=== PATIENT | male | born 1975 | race Caucasian/White ===

== ENCOUNTER 2023-11-21 21:04 | Emergency (ER) | payer SELFPAY ==
[~2023-11-21] VITALS: Ht 172.7 cm; Wt 77.0 kg
[2023-11-21 21:06] VITALS: O2SAT 99
[2023-11-21] MEDS: SODIUM CHLORIDE 0.9% 1,000 ML IV ONE (21:15)
[2023-11-21 22:53] LABS: BASOPHILS % 0.7 % (0.0-2.0); HEMATOCRIT. 45.6 % (42.0-52.0); HEMOGLOBIN. 15.1 g/dL (14.0-18.0); LYMPHOCYTES % 34.1 % (20.0-50.0); MEAN CORPUSCULAR VOLUME 90.9 fL (80.0-94.0); MONOCYTES % 6.2 % (2.0-8.0); PLATELET 231 x1000/uL (130-400); RED BLOOD CELL COUNT 5.02 mill/uL (4.7-6.1); RED CELL DISTRIBUTION WIDTH 14.5 % (11.6-14.6); WHITE BLOOD COUNT 4.8 x1000/uL (4.5-11.0)
[2023-11-21 22:58] LABS: CHLORIDE 109 mEq/L (98-107); POTASSIUM 3.6 mEq/L (3.5-5.1); SODIUM 143 mEq/L (136-145)
[2023-11-21 22:59] LABS: CALCIUM 9.1 mg/dL (8.7-10.4); CARBON DIOXIDE 28 mEq/L (21-32)
[2023-11-21 23:00] LABS: PROTHROMBIN TIME 10.9 sec (9.6-11.0)
[2023-11-21 23:04] LABS: GLUCOSE 94 mg/dL (70-105)
[2023-11-21 23:05] LABS: AMMONIA < 17 uMol/L (<32); ETHANOL BLOOD 120 mg/dL (<10); TROPONIN I HIGH SENSITIVITY 5 ng/L (3.0-53); UREA NITROGEN BLOOD 8 mg/dL (9-23)
[2023-11-21 23:06] LABS: ACETAMINOPHEN < 2 ug/mL (10-30); ALANINE AMINOTRANSFERASE 19 IU/L (10-49); ALBUMIN 4.1 g/dL (3.2-4.8); ASPARTATE AMINOTRANSFERASE 17 IU/L (<34); CREATINE KINASE 56 IU/L (46-171)
[2023-11-21 23:07] LABS: BILIRUBIN TOTAL 0.4 mg/dL (0.1-1.0); PROTEIN TOTAL 6.4 g/dL (6.0-8.3)
[2023-11-22 00:32] LABS: TROPONIN I HIGH SENSITIVITY 6 ng/L (3.0-53)
[2023-11-22 00:34] LABS: ACETAMINOPHEN < 2 ug/mL (10-30)
[2023-11-22 01:12] LABS: CLARITY URINE CLEAR (CLEAR); COLOR URINE YELLOW (YELLOW); GLUCOSE URINE NEGATIVE (NEGATIVE); KETONES URINE NEGATIVE (NEGATIVE); LEUKOCYTE ESTERASE URINE NEGATIVE (NEGATIVE); NITRITE URINE NEGATIVE (NEGATIVE); OCCULT BLOOD URINE NEGATIVE (NEGATIVE); PROTEIN URINE NEGATIVE (NEGATIVE); SPECIFIC GRAVITY URINE 1.016 (1.005-1.030); UROBILINOGEN URINE 0.2 E.U./dL (0.2-1.0)
[2023-11-22 01:26] LABS: *AMPHETAMINES SCREEN URINE NEGATIVE (NEGATIVE); *BARBITURATES SCREEN URINE NEGATIVE (NEGATIVE); *BENZODIAZEPINES SCREEN URINE NEGATIVE (NEGATIVE); *COCAINE SCREEN URINE NEGATIVE (NEGATIVE); METHADONE URINE SCREEN NEGATIVE (NEGATIVE)
[2023-11-22 01:27] LABS: CANNABINOID URINE SCREEN PRESUMPTIVE POSITIVE (NEGATIVE); ECSTASY MDMA SCREEN URINE NEGATIVE (NEGATIVE); OPIATES URINE SCREEN NEGATIVE (NEGATIVE); PHENCYCLIDINE URINE SCREEN NEGATIVE (NEGATIVE)
[2023-11-22] MEDS ORDERED: ALPRAZOLAM 0.5 MG TABLET PO ONE (16:15)
[2023-11-22] MEDS: ALPRAZOLAM 0.25 MG TABLET PO NR (17:12)
[2023-11-22] MEDS: MELATONIN 3MG TABLET PO SCH (22:14)
[2023-11-22] MEDS: OLANZAPINE 5MG TABLET ODT PO SCH (22:14)
[2023-11-23 07:01] VITALS: TEMP 36.78072
[2023-11-23 16:13] VITALS: BP 114/69; PULSE 80; RESP 18; O2SAT 99
== END 2023-11-23 19:44 | disposition short-term general hospital (02) ==
LOC: EDBD 21:04 → ER 21:04
DX: R45.851 Suicidal ideations (principal); Z20.822 Contact with and (suspected) exposure to COVID-19
CPT/HCPCS: 80053; 80305; 81003; 80307; 80329; 80320; 82140; 82550; 83690; 85025; 85610; 86850; 86900; 86901; 84484; 36415; 71045; 93005; 96360; 96361; 99285; 87426; J7030; 83880; G0480